=== PATIENT | male | born 1960 | race African-American/Black ===

== ENCOUNTER → 2022-05-05 | Outpatient (CLI) | payer OTHER | LOC: RAD 16:49 | DX: R76.12 Nonspecific reaction to cell mediated immunity measurement of gamma interferon antigen response without active tuberculosis (principal); F15.20 Other stimulant dependence, uncomplicated | CPT/HCPCS: 71046 ==

== ENCOUNTER 2022-05-16 13:19 | Inpatient (IN) | payer OTHER ==
[~2022-05-16] VITALS: Ht 182.9 cm; Wt 100.8 kg
[2022-05-16 14:22] LABS: HEMOGLOBIN 13.1 gm/dl (14.0-17.5); RED BLOOD COUNT 5.11 M/UL (4.20-5.50); WHITE BLOOD COUNT 5.7 K/UL (4.5-11.0)
[2022-05-16 14:42] LABS: BUN/CREATININE RATIO 10 (0-10)
[2022-05-16] MEDS ORDERED: MYCOSTATIN100000 UTS PO (22:24)
[2022-05-16] MEDS ORDERED: TRAZODONE HCL100 MG PO (22:25)
[2022-05-16] MEDS ORDERED: BUPRENORPHIN-N1 EACH SL (22:26)
[2022-05-16] MEDS ORDERED: ABILIFY10 MG PO (22:27)
[2022-05-16] MEDS ORDERED: PROTONIX40 MG PO (22:29)
[2022-05-16] MEDS ORDERED: NORVASC10 MG PO (22:30)
[2022-05-16] MEDS ORDERED: ESCITALOPRAM OX10 MG PO (22:31)
[2022-05-16] MEDS ORDERED: VITAMIN D3125 MCG PO (22:32)
[2022-05-16] MEDS ORDERED: PROAIR HFA8.5 GM INH (22:33)
[2022-05-16] MEDS ORDERED: CATAPRES 0.1MG0.1 MG PO (22:36)
[2022-05-16] MEDS ORDERED: BENTYL 10MG CAP10 MG PO (22:39)
[2022-05-16] MEDS ORDERED: COLACE 100MG C100 MG PO (22:40)
[2022-05-16] MEDS ORDERED: DOXEPIN HCL50 MG PO (22:44)
[2022-05-16] MEDS ORDERED: VISTARIL 25 MG25 MG PO (22:45)
[2022-05-16] MEDS ORDERED: ANTACID LIQUID355 ML PO (22:46)
[2022-05-16] MEDS ORDERED: CEPACOL SORE T1 EACH MM (22:47)
[2022-05-16] MEDS ORDERED: MUCINEX600 MG PO (22:47)
[2022-05-16] MEDS ORDERED: ZOFRAN ODT 4 MG4 MG SL (22:48)
[2022-05-16] MEDS ORDERED: IMODIUM CAP 2 MG2 MG PO (22:49)
[2022-05-16] MEDS ORDERED: TUMS200 MG PO (22:51)
[2022-05-16] MEDS ORDERED: MILK OF MAGNESI30 ML PO (22:51)
[2022-05-16] MEDS ORDERED: TYLENOL EXTRA500 MG PO (22:55)
[2022-05-16] MEDS ORDERED: TAB-A-VITE TA400 MC1 PO (22:56)
[2022-05-16] MEDS ORDERED: IBU400 MG PO (22:56)
[2022-05-17 01:38] LABS: RED BLOOD COUNT 4.68 M/UL (4.20-5.50); WHITE BLOOD COUNT 7.1 K/UL (4.5-11.0)
[2022-05-17 02:03] LABS: BUN/CREATININE RATIO 8 (0-10)
--- NOTE | 2022-05-18 05:06 | NUR ---
PATIENT VERY NONCOMPLIANT ALL SHIFT, KEPT TURNING IV PUMP OFF, GOING OUT SIDE AND BEING RATHER RUDE.
[2022-05-18 07:06] LABS: ADENOVIRUS F 40/41 Not Detected (Negative); ASTROVIRUS Not Detected (Negative); CAMPYLOBACTER Not Detected (Negative); CRYPTOSPORIDIUM Not Detected (Negative); E.COLI 0157 Not Detected (Negative); ENTAMOEBA HISTOLYTICA Not Detected (Negative); ENTEROAGGREGATIVE E.COLI (EAEC Not Detected (Negative); ENTEROPATHOGENIC E.COLI (EPEC) Not Detected (Negative); ENTEROTOXIGENIC E.COLI (ETEC) Not Detected (Negative); GIARDIA LAMBLIA Not Detected (Negative); NOROVIRUS GI/GII Not Detected (Negative); PLESIOMONAS SHIGELLOIDES Not Detected (Negative); ROTOVIRUS A Not Detected (Negative); SALMONELLA Not Detected (Negative); SAPOVIRUS Not Detected (Negative); SHIG/ENTEROINVAS.ECOLI (EIEC) Not Detected (Negative); SHIGA-LIK TOX.PRO.E.COLI (STEC Not Detected (Negative); VIBRIO Not Detected (Negative); VIBRIO CHOLERAE Not Detected (Negative); YERSINIA ENTEROCOLITICA Not Detected (Negative)
[2022-05-18 08:38] LABS: CLOSTRIDIUM DIFFICILE TOX A/B Not Detected (Negative)
[2022-05-18] MEDS ORDERED: AMOX TR-K CLV1 EAC4 PO (12:46)
[2022-05-18] MEDS ORDERED: OYSTER SHELL 51 EAC2 PO (12:46)
[2022-05-18] MEDS ORDERED: PROAIR HFA8.5 GM INH (12:51)
--- NOTE | 2022-05-18 13:10 | NUR ---
RN walked pt throughout unit on room air and monitored O2 saturation. Patient kept saturation above 95%. No need for home oxygen.
== END 2022-05-18 13:48 | DRG 193 ==
LOC: ER1 13:19 → PROG CARE 20:54 → CDU 20:54 → PROG CARE 22:16 → M/S 05-17 13:59
PROVIDERS: Internal Medicine; Student in an Organized Health Care Education/Training Program; ADMIT Internal Medicine
DX: J18.9 Pneumonia, unspecified organism (principal); J96.01 Acute respiratory failure with hypoxia; F11.20 Opioid dependence, uncomplicated; J45.909 Unspecified asthma, uncomplicated; Z20.822 Contact with and (suspected) exposure to COVID-19; I10 Essential (primary) hypertension; R19.7 Diarrhea, unspecified; F17.210 Nicotine dependence, cigarettes, uncomplicated; N28.1 Cyst of kidney, acquired; M47.896 Other spondylosis, lumbar region; Z98.42 Cataract extraction status, left eye; Z98.41 Cataract extraction status, right eye; Z98.890 Other specified postprocedural states
CPT/HCPCS: 36415; 36600; 71045; 71275; 80048; 80053; 82803; 83880; 84484; 85025; 87507; 93005; 94640; 94760; 96374; 96375; 99285; J0456; J0696; J1650; J7030; Q9967; U0002